=== PATIENT | male | born 1990 | race Caucasian/White ===

== ENCOUNTER 2020-08-18 07:30 | Emergency (ER) | payer OTHER ==
[2020-08-18 07:42] VITALS: BP 141/64; PULSE 87; TEMP 98.7; BMI 31.7
[2020-08-18] MEDS ORDERED: HYDROmorphone HCL CARPU-JECT 2 MG/1 ML DISP.SYRIN IM ONE (07:56)
[2020-08-18] MEDS ORDERED: HYDROmorphone HCl 2 MG/ML VIAL ONE (07:56)
[2020-08-18] MEDS ORDERED: LIDOCAINE 1%/EPI 1:100000 (50 ML MULTI DOSE VIAL) ONE (07:56)
== END 2020-08-18 08:40 | disposition home or self-care (01) ==
LOC: JER 07:30
PROC: 0H98XZZ Drainage of Buttock Skin, External Approach (ICD-10-PCS; principal; 2020-08-18)
PROC: 3E023NZ Introduction of Analgesics, Hypnotics, Sedatives into Muscle, Percutaneous Approach (ICD-10-PCS; 2020-08-18)
DX: L02.31 Cutaneous abscess of buttock (principal)
CPT/HCPCS: 99284-25

== ENCOUNTER 2021-11-07 20:38 | Emergency (ER) | payer OTHER ==
[2021-11-07 20:45] VITALS: BP 131/74; PULSE 97; TEMP 97.4; BMI 29.5
== END 2021-11-07 21:42 | disposition home or self-care (01) ==
LOC: JERFT 20:38
DX: M25.531 Pain in right wrist (principal); X50.0XXA Overexertion from strenuous movement or load, initial encounter
CPT/HCPCS: 73110-TC-RT-FY; 99283-25